=== PATIENT | male | born 1980 | race Caucasian/White ===

== ENCOUNTER 2024-05-29 23:29 | Emergency (ER) | payer OTHER ==
[~2024-05-29] VITALS: Ht 172.7 cm; Wt 98.0 kg
[~2024-05-29 23:29] MED LIST: ALDACTONE25 MG PO; ASPIRIN EC325 MG PO; CARVEDILOL3.125 MG PO; FUROSEMIDE20 MG PO; K-TAB ER20 MEQ PO; LIPITOR10 MG PO; LISINOPRIL2.5 MG PO; POTASSIUM CHLO10 ME1 PO; SPIRONOLACTONE25 MG PO
[2024-05-30 00:46] LABS: BASOPHILS 1.2 % (0-2); EOSINOPHILS 2.2 % (0-6); HEMATOCRIT 40.2 % (35.0-50.0); HEMOGLOBIN 13.7 g/dL (12.0-18.0); LYMPHOCYTES 27.3 % (24-44); MCH 33.5 (27-36); MCHC 34.1 g/dl (30-36); MCV 98.1 fl (81-99); MONOCYTES 9.4 % (0-12); NEUTROPHILS 59.9 % (39-80); PLATELET COUNT 228 K/uL (140-440); RBC 4.09 M/ul (4.3-5.7); RDW 13.8 (10.5-15.0)
[2024-05-30 01:07] LABS: ALBUMIN 3.3 g/dL (3.4-5.0); ALBUMIN/GLOBULIN RATIO 1.14 (1.1-2.4); ANION GAP 12.1 (7-21); BILIRUBIN, TOTAL 0.7 ng/dL (0.2-1.0); BUN/CREATININE RATIO 14.75 (6.0-28.6); CALCIUM 8.8 mg/dL (8.5-10.1); CREATININE, SERUM 1.22 mg/dL (0.70-1.30); MAGNESIUM 2.2 mg/dL (1.8-2.4); POTASSIUM 4.1 mmol/L (3.5-5.1); PROTEIN, TOTAL 6.2 g/dL (6.4-8.2)
[2024-05-30 01:44] LABS: BILIRUBIN, URINE NEGATIVE (negative); BLOOD/HGB, URINE NEGATIVE (Negative); KETONE, URINE NEGATIVE (Negative); LEUK ESTERASE, URINE NEGATIVE (negative); NITRITE, URINE NEGATIVE (negative)
[2024-05-30] MEDS ORDERED: FUROSEMIDE 40 MG TAB PO ONE (01:45)
[2024-05-30] MEDS ORDERED: DOXYCYCLINE HY100 MG PO (02:19)
[2024-05-30] MEDS ORDERED: LASIX20 MG PO (02:22)
[2024-05-30 02:32] VITALS: BP 110/85
--- NOTE | 2024-05-31 20:10 | EKG ---
[facility] [address] [facility] [place] [address] Signed Normal sinus rhythm Possible Left atrial enlargement Left axis deviation Left bundle branch block Abnormal ECG When compared with ECG of 28-NOV-2023 12:05, T wave inversion no longer evident in Inferior leads Confirmed by Sofi Chance MD ([id number]) on 05/31/2024 8:10:21 PM Electronically Signed By: SOFI CHANCE MD 05/31/242009 PATIENT NAME: NANCY ARTIS Electrocardiogram DATE OF : 76 PHYSICIAN: SOFI CHANCE MD REPORT #: [id number] REPORT IS CONFIDENTIAL AND NOT TO BE RELEASED WITHOUT AUTHORIZATION
== END 2024-05-30 02:32 | disposition home or self-care (01) ==
LOC: ED 23:29
PROVIDERS: Internal Medicine
DX: I11.0 Hypertensive heart disease with heart failure (principal); I50.9 Heart failure, unspecified; Z79.899 Other long term (current) drug therapy; Z88.1 Allergy status to other antibiotic agents; Z79.82 Long term (current) use of aspirin
CPT/HCPCS: 36415; 71045; 80053; 81003; 83735; 83880; 84484; 85025; 93005; 93010; 99285; U0002

== ENCOUNTER 2024-06-23 20:07 | Emergency (ER) | payer OTHER ==
[~2024-06-23] VITALS: Ht 172.7 cm; Wt 102.5 kg
[~2024-06-23 20:07] MED LIST changes: +DOXYCYCLINE HY100 MG PO; +LASIX20 MG PO
--- OUTSIDE RECORDS SUMMARY | 2024-06-23 20:13 | XMS ---
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 ETaya VISIT COUNT (12 MO.) [address] [place] [address] TOTAL 3 NOTE: Visits indicate total known visits. ED/UCC VISIT TRACKING (12 MO.) 06/23/2024 20:07 [facility] TYPE: Emergency COMPLAINT: - BLOOD PRESSURE ISSUE 05/29/2024 23:29 [facility] TYPE: Emergency COMPLAINT: - COLD SYMPTOMS DIAGNOSES: - Allergy status to other antibiotic agents - Cough, unspecified - Heart failure, unspecified - Hypertensive heart disease with heart failure - jail (current) use of aspirin - Other [facility] (current) drug therapy 11/28/2023 11:[address] 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
[2024-06-23 20:47] LABS: BASOPHILS 1.2 % (0-2); EOSINOPHILS 2.4 % (0-6); HEMATOCRIT 45.4 % (35.0-50.0); HEMOGLOBIN 15.7 g/dL (12.0-18.0); LYMPHOCYTES 32.9 % (24-44); MCH 34.1 (27-36); MCHC 34.7 g/dl (30-36); MCV 98.3 fl (81-99); MONOCYTES 11.3 % (0-12); NEUTROPHILS 52.2 % (39-80); PLATELET COUNT 237 K/uL (140-440); RBC 4.62 M/ul (4.3-5.7); RDW 13.5 (10.5-15.0)
[2024-06-23 21:06] LABS: ALBUMIN/GLOBULIN RATIO 1.14 (1.1-2.4); ANION GAP 13.5 (7-21); BILIRUBIN, TOTAL 0.5 ng/dL (0.2-1.0); BUN/CREATININE RATIO 22.03 (6.0-28.6); CREATININE, SERUM 1.18 mg/dL (0.70-1.30); POTASSIUM 4.5 mmol/L (3.5-5.1); PROTEIN, TOTAL 7.5 g/dL (6.4-8.2)
[2024-06-23] MEDS ORDERED: ALBUTEROL/IPRATROPIUM 3 ML NEB INH ONE (22:15)
[2024-06-23] MEDS ORDERED: methylPREDNISolone SOD SUCC 125 MG/2 ML VIAL IV ONE (22:30)
[2024-06-23 23:01] LABS: INFLUENZA B NAA NEGATIVE (NEGATIVE); RESPIRATORY SYNCYTIAL VIR NAA NEGATIVE (NEGATIVE)
[2024-06-23] MEDS ORDERED: ALBUTEROL SULFATE 8 GM HOME.PACK INH ONE (23:15)
[2024-06-23] MEDS ORDERED: INHALER, ASSIST DEVICES 1 EACH SPACER MISC ONE (23:15)
[2024-06-23] MEDS ORDERED: METHYLPREDNISOLO4 M1 PO (23:16)
[2024-06-23 23:28] VITALS: BP 116/84
--- NOTE | 2024-06-26 21:33 | EKG ---
[facility] [address] [facility] [place] [address] Signed Normal sinus rhythm Left bundle branch block Abnormal ECG When compared with ECG of 30-MAY-2024 00:23, Nonspecific T wave abnormality now evident in Inferior leads Confirmed by Mary Johnson MD ([id number]) on 06/26/2024 9:33:46 PM Electronically Signed By: MARY JOHNSON DO 06/26/24 213 PATIENT NAME: NANCY ARTIS Electrocardiogram DATE OF : 76 PHYSICIAN: MARY OJHNSON DO REPORT #: [id number] REPORT IS CONFIDENTIAL AND NOT TO BE RELEASED WITHOUT AUTHORIZATION
--- NOTE | 2024-06-26 21:42 | EKG ---
[facility] [address] [facility] [place] [address] Signed Sinus tachycardia Possible Left atrial enlargement Left bundle branch block Abnormal ECG When compared with ECG of 23-JUN-2024 20:44, (Unconfirmed) Nonspecific T wave abnormality no longer evident in Inferior leads Confirmed by Mary Johnson MD ([id number]) on 06/26/2024 9:42:05 PM Electronically Signed By: MARY JOHNSON DO 06/26/242141 PATIENT NAME: NANCY ARTIS Electrocardiogram DATE OF : 76 PHYSICIAN: MARY JOHNSON DO REPORT #: [id number] REPORT IS CONFIDENTIAL AND NOT TO BE RELEASED WITHOUT AUTHORIZATION
== END 2024-06-23 23:28 | disposition home or self-care (01) ==
LOC: ED 20:07
PROVIDERS: Internal Medicine
DX: J20.9 Acute bronchitis, unspecified (principal); I11.0 Hypertensive heart disease with heart failure; I50.9 Heart failure, unspecified; Z88.1 Allergy status to other antibiotic agents; Z79.82 Long term (current) use of aspirin; Z79.899 Other long term (current) drug therapy
CPT/HCPCS: 36415; 71045; 80053; 84484; 85025; 85379; 87502; 93005; 93010; 94640; 96374; 99285-25; J2919; U0002

== ENCOUNTER 2024-06-25 19:48 | Emergency (ER) | payer OTHER ==
[~2024-06-25] VITALS: Ht 172.7 cm; Wt 103.8 kg
[~2024-06-25 19:48] MED LIST changes: +METHYLPREDNISOLO4 M1 PO
--- OUTSIDE RECORDS SUMMARY | 2024-06-25 19:55 | XMS ---
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 ETaya VISIT COUNT (12 MO.) [address] [place] [address] TOTAL 4 NOTE: Visits indicate total known visits. ED/UCC VISIT TRACKING (12 MO.) 06/25/2024 19:49 [facility] TYPE: Emergency COMPLAINT: - CHEST PAIN 06/23/2024 20:07 [facility] TYPE: Emergency COMPLAINT: - BLOOD PRESSURE ISSUE DIAGNOSES: - Acute bronchitis, unspecified - Allergy status to other antibiotic agents - Heart failure, unspecified - Hypertensive heart disease with heart failure - halfway (current) use of aspirin - Other chest pain - Other care home (current) drug therapy 05/29/2024 23:29 [facility] TYPE: Emergency COMPLAINT: - COLD SYMPTOMS DIAGNOSES: - Allergy status to other antibiotic agents - Cough, unspecified - Heart failure, unspecified - Hypertensive heart disease with heart failure - halfway (current) use of aspirin - Other rn long term care (current) drug therapy 11/28/2023 11:39 [facility] TYPE: Emergency COMPLAINT: - COLD/FLU SYMPTOMS, R FLANK PAIN DIAGNOSES: - Allergy status to other antibiotic agents - Heart failure, unspecified - Hypertensive heart disease with heart failure - halfway (current) use of aspirin - Other rn long term care (current) drug therapy - Other stimulant abuse, uncomplicated - Shortness of breath INPATIENT VISIT TRACKING (12 MO.) No inpatient visits to display in this time frame [email or web address]
[2024-06-25] MEDS ORDERED: ASPIRIN 81 MG CHEW PO ONE (20:00)
[2024-06-25] MEDS ORDERED: NITROGLYCERIN 0.4 MG SUBL SL PRN (20:00)
[2024-06-25 20:25] LABS: BASOPHILS 0.5 % (0-2); EOSINOPHILS 0.3 % (0-6); HEMATOCRIT 42.3 % (35.0-50.0); HEMOGLOBIN 14.8 g/dL (12.0-18.0); LYMPHOCYTES 16.2 % (24-44); MCH 34.9 (27-36); MCV 99.5 fl (81-99); MONOCYTES 9.7 % (0-12); NEUTROPHILS 73.3 % (39-80); PLATELET COUNT 220 K/uL (140-440); RBC 4.25 M/ul (4.3-5.7); RDW 14.2 (10.5-15.0)
[2024-06-25 20:47] LABS: ALBUMIN 3.8 g/dL (3.4-5.0); ALBUMIN/GLOBULIN RATIO 1.23 (1.1-2.4); ANION GAP 14.3 (7-21); BILIRUBIN, TOTAL 0.7 ng/dL (0.2-1.0); BUN/CREATININE RATIO 24.57 (6.0-28.6); CALCIUM 8.5 mg/dL (8.5-10.1); CREATININE, SERUM 1.18 mg/dL (0.70-1.30); MAGNESIUM 2.3 mg/dL (1.8-2.4); POTASSIUM 4.3 mmol/L (3.5-5.1); PROTEIN, TOTAL 6.9 g/dL (6.4-8.2)
[2024-06-25] MEDS ORDERED: LACTATED RINGER'S 1,000 ML IV ONE (21:00)
[2024-06-25] MEDS ORDERED: MORPHINE SULFATE 4 MG/ML VIAL IV ONE (21:00)
[2024-06-25 21:28] LABS: INR 0.94 (0.80-1.30); PROTIME 12.2 Sec (11.2-14.2)
[2024-06-25] MEDS ORDERED: TRAMADOL HCL50 MG PO (22:15)
[2024-06-25 22:26] VITALS: BP 109/74
== END 2024-06-25 22:34 | disposition home or self-care (01) ==
LOC: ED 19:48
PROVIDERS: Family Medicine
DX: R07.89 Other chest pain (principal); I11.0 Hypertensive heart disease with heart failure; I50.9 Heart failure, unspecified; Z88.1 Allergy status to other antibiotic agents; Z79.52 Long term (current) use of systemic steroids; Z79.82 Long term (current) use of aspirin; Z79.899 Other long term (current) drug therapy
CPT/HCPCS: 36415; 71045; 80053; 83735; 83880; 84484; 85025; 85379; 85610; 85730; 93005; 93010; 96374; 99285-25; A9270; J2270; J7121

== ENCOUNTER 2024-07-03 20:57 | Emergency (ER) | payer OTHER ==
[~2024-07-03] VITALS: Ht 172.7 cm; Wt 104.6 kg
[~2024-07-03 20:57] MED LIST changes: +TRAMADOL HCL50 MG PO
--- OUTSIDE RECORDS SUMMARY | 2024-07-03 21:04 | XMS ---
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 - 2 Visits in 30 Days CARE PROVIDERS -, [facility] Dentist: Clinical Exercise Physiologist Current [place] PHONE: [phone] [facility] Clinic/Center: [facility] Current \F\ [facility] PHONE: [phone] Amber has no Care Guidelines for this patient. [facility] TOTAL 5 NOTE: Visits indicate total known visits. ED/UCC VISIT TRACKING (12 MO.) 07/03/2024 20:[address] 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 06/23/2024 20:07 [facility] TYPE: Emergency COMPLAINT: - BLOOD PRESSURE ISSUE DIAGNOSES: - Acute bronchitis, unspecified - Allergy status to other antibiotic agents - Heart failure, unspecified - Hypertensive heart disease with heart failure - senior living (current) use of aspirin - Other chest pain - Other [facility] (current) drug therapy 05/29/2024 23:29 [facility] TYPE: Emergency COMPLAINT: - COLD SYMPTOMS DIAGNOSES: - Allergy status to other antibiotic agents - Cough, unspecified - Heart failure, unspecified - Hypertensive heart disease with heart failure - 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
[2024-07-03] MEDS ORDERED: NITROGLYCERIN 0.4 MG SUBL SL PRN (21:15)
[2024-07-03] MEDS ORDERED: ASPIRIN 81 MG CHEW PO ONE (21:15)
[2024-07-03 21:16] LABS: BASOPHILS 0.8 % (0-2); HEMATOCRIT 43.5 % (35.0-50.0); HEMOGLOBIN 14.5 g/dL (12.0-18.0); LYMPHOCYTES 25.2 % (24-44); MCH 33.2 (27-36); MCHC 33.4 g/dl (30-36); MCV 99.3 fl (81-99); MONOCYTES 11.3 % (0-12); NEUTROPHILS 60.7 % (39-80); PLATELET COUNT 214 K/uL (140-440); RBC 4.37 M/ul (4.3-5.7)
[2024-07-03 21:35] LABS: ALBUMIN 3.5 g/dL (3.4-5.0); ALBUMIN/GLOBULIN RATIO 1.09 (1.1-2.4); ANION GAP 14.5 (7-21); BILIRUBIN, TOTAL 0.3 ng/dL (0.2-1.0); BUN/CREATININE RATIO 19.81 (6.0-28.6); CALCIUM 8.9 mg/dL (8.5-10.1); CREATININE, SERUM 1.11 mg/dL (0.70-1.30); MAGNESIUM 2.2 mg/dL (1.8-2.4); POTASSIUM 4.5 mmol/L (3.5-5.1); PROTEIN, TOTAL 6.7 g/dL (6.4-8.2)
[2024-07-03 22:05] VITALS: BP 92/73
[2024-07-03 22:20] LABS: AMPHETAMINES, URINE NEGATIVE (NEGATIVE); BARBITURATES, URINE NEGATIVE (NEGATIVE); BENZODIAZEPINE, URINE NEGATIVE (NEGATIVE); BUPRENORPHINE, URINE NEGATIVE (NEGATIVE); CANNABINOID, URINE NEGATIVE (NEGATIVE); COCAINE, URINE NEGATIVE (NEGATIVE); ECSTASY, URINE NEGATIVE (NEGATIVE); FENTANYL, URINE NEGATIVE (NEGATIVE); METHADONE, URINE NEGATIVE (NEGATIVE); OPIATES, URINE NEGATIVE (NEGATIVE); OXYCODONE, URINE NEGATIVE (NEGATIVE); PHENCYCLIDINE, URINE NEGATIVE (NEGATIVE)
== END 2024-07-03 22:05 | disposition left against medical advice (07) ==
LOC: ED 20:57
PROVIDERS: Internal Medicine
DX: R07.89 Other chest pain (principal); I11.0 Hypertensive heart disease with heart failure; I50.9 Heart failure, unspecified; I44.7 Left bundle-branch block, unspecified; I25.2 Old myocardial infarction; Z53.29 Procedure and treatment not carried out because of patient's decision for other reasons; Z86.73 Personal history of transient ischemic attack (TIA), and cerebral infarction without residual deficits; Z88.1 Allergy status to other antibiotic agents; Z79.82 Long term (current) use of aspirin; Z79.899 Other long term (current) drug therapy
CPT/HCPCS: 36415; 71045; 80053; 80307; 83735; 83880; 84484; 85025; 85379; 87502; 93005; 93010; 99285-25; U0002

== ENCOUNTER 2025-06-25 19:45 | Emergency (ER) | payer OTHER ==
[~2025-06-25] VITALS: Ht 172.7 cm; Wt 115.0 kg
[2025-06-25] MEDS ORDERED: DICLOFENAC35 MG PO (20:02)
[2025-06-25] MEDS ORDERED: NEURONTIN100 MG PO (20:03)
[2025-06-25] MEDS ORDERED: DULOXETINE HCL20 MG PO (20:04)
[2025-06-25] MEDS ORDERED: TRAMADOL HCL 50 MG TAB PO ONE (20:30)
[2025-06-25] MEDS ORDERED: HYDROCODON-ACE1 EA10 PO (21:49)
[2025-06-25] MEDS ORDERED: HYDROCODONE BIT/ACETAMINOPHEN 5/325 MG 1 TAB HOME.PACK PO ONE (22:00)
[2025-06-25] MEDS ORDERED: methylPREDNISolone 4 MG HOME.PACK PO ONE (22:00)
[2025-06-25 23:08] VITALS: BP 120/72
== END 2025-06-25 23:02 | disposition home or self-care (01) ==
LOC: ED 19:45
DX: M76.891 Other specified enthesopathies of right lower limb, excluding foot (principal); I11.0 Hypertensive heart disease with heart failure; I50.9 Heart failure, unspecified; I25.2 Old myocardial infarction; Z86.73 Personal history of transient ischemic attack (TIA), and cerebral infarction without residual deficits; Z88.1 Allergy status to other antibiotic agents; Z79.82 Long term (current) use of aspirin; Z79.899 Other long term (current) drug therapy
CPT/HCPCS: 73560; 99283; A9270